=== PATIENT | male | born 1985 | race Caucasian/White ===

== ENCOUNTER 2017-06-10 15:06 | Emergency (ER) | payer MEDICAID ==
[2017-06-10 15:15] VITALS: RESP 16
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
[2017-06-10] MEDS ORDERED: RABIES IMMUNE GLOBULIN 300 UNIT/2 ML VIAL IM ONE (16:36)
[2017-06-10] MEDS ORDERED: RABIES VACC, HUMAN DIPLOID/PF 2.5 UNIT VIAL (RABAVERT) IM ONE (16:36)
[2017-06-10 18:08] VITALS: BP 129/80; PULSE 83; TEMP 98.4; O2SAT 95
== END 2017-06-10 18:08 | disposition home or self-care (01) ==
DX: Z20.3 Contact with and (suspected) exposure to rabies (principal); Z23 Encounter for immunization

== ENCOUNTER 2017-06-12 11:59 | Emergency (ER) | payer MEDICAID ==
[2017-06-12 12:06] VITALS: RESP 16
[2017-06-12] MEDS ORDERED: RABIES VACC, HUMAN DIPLOID/PF 2.5 UNIT VIAL (RABAVERT) IM ONE (12:35)
--- NOTE | 2017-06-12 13:06 | EDPHY ---
H & P Time Seen by Provider: 06/12/17 12:48 HPI/ROS: CHIEF COMPLAINT: Rabies vaccine dose 2. HISTORY OF PRESENT ILLNESS: 31-year-old male presents to the emergency department requesting his 2nd rabies vaccine. The patient was seen in the emergency department 2 days ago and was given rabies immunoglobulin and 1st rabies vaccine dose. The patient was told to return to the emergency department on Tuesday for his 2nd rabies vaccine dose and he would follow up with [facility] for the remainder of the vaccine. He currently has no complaints. ROS: Denies visual changes, headache, rash. Past Medical/Surgical History: Negative Social History: Single Smoking Status: Never smoked Physical Exam: On examination there is no swelling noted to the left eyelid. No evidence of puncture wound or bite kaitlynn. No redness or warmth or signs of cellulitis. Pupils are equal and round and reactive. No scleral injection noted. Constitutional: Initial Vital Signs Temperature (C) 36.6 C 06/12/17 12:04 Heart Rate 78 06/12/17 12:04 Respiratory Rate 16 06/12/17 12:04 Blood Pressure 123/69 H 06/12/17 12:04 O2 Sat (%) 99 06/12/17 12:04 O2 Delivery Mode Room Air Allergies/Adverse Reactions: No Known Allergies Allergy (Unverified 06/10/17 15:39) Home Medications: Medication Instructions Recorded NK [No Known Home Meds] 06/10/17 MDM/Departure - MDM Medications Given: Discontinued Medications Rabies Vaccine Human Diploid Cell (Rabavert) 2.5 unit IM .ONCE ONE Stop: 06/12/17 12:36 Last Admin: 06/12/17 13:49 Dose: 2.5 unit ED Course/Re-evaluation: 31-year-old male presents for his 2nd rabies vaccine. Patient is actually arriving to the emergency department 1 day early. I spoke with the pharmacist and they felt that it was okay to given his next dose today even though is only 2 days out from his original rabies immunoglobulin and rabies vaccine. However they did recommend having him come back 1 day earlier than originally scheduled which would be this , June 16 and the following , June 23. Patient was comfortable with this plan. I also spoke with Dr. Gutierrez, secondary supervising physician, who did not directly evaluate the patient but agrees with treatment and plan. - Depart Disposition: Home, Routine, Self-Care Clinical Impression: Rabies exposure Condition: Good Instructions: Rabies (ED) Additional Instructions: Follow-up with [facility] for further rabies vaccine. Because you came to the emergency department on day 2, your rabies vaccine remainder dosage should be given on , June 16 and June 23. Referrals: [facility] ([facility],. [Edm Groups for Call Sched] - As per Instructions (Call to arrange follow up with appt for future rabies vaccine dose )
[2017-06-12 13:52] VITALS: BP 122/78; PULSE 76; TEMP 95; O2SAT 98
== END 2017-06-12 13:54 | disposition home or self-care (01) ==
DX: Z23 Encounter for immunization (principal); Z20.3 Contact with and (suspected) exposure to rabies